=== PATIENT | male | born 1990 | race Caucasian/White ===

== ENCOUNTER 2019-05-22 22:05 | Emergency (ER) | payer BC ==
[2019-05-23 00:28] VITALS: BP 142/82
--- NOTE | 2019-05-23 00:36 | ER Document Report ---
ED Respiratory Problem - General Chief Complaint: Choked/Choking Stated Complaint: SHORTNESS OF BREATH Time Seen by Provider: 05/23/19 00:28 Mode of Arrival: Ambulatory Information source: Patient Notes: 28-year-old male presented to ED for complaint of choking on some food earlier today. He states he called his [facility] in the and they told him that he needed to come to the emergency room because he had some pain in the center of his chest when he coughs. He does not have any pain when he is not coughing. He is alert oriented respirations regular and unlabored speaking in full sentences walks with a even steady gait. His lungs are clear to auscultation at this time. - HPI Patient complains to provider of: Cough - He was seen after choking on some food earlier today Onset: This evening - About 7 PM Duration: Intermittent episodes Quality of pain: No pain Severity: None Pain Level: Denies Chest pain/discomfort: Intermittent - Only when he coughs Associated symptoms: Cough - Coughing intermittently tonight after he choked on some food. Has some chest pain when he coughs otherwise no pain Similar symptoms previously: No Recently seen / treated by doctor: No - Related Data Allergies/Adverse Reactions: No Known Allergies Allergy (Verified 05/23/19 00:41) Past Medical History - General Information source: Patient - Social History Smoking Status: Never Smoker Cigarette use (# per day): No Chew tobacco use (# tins/day): No Smoking Education Provided: No Frequency of alcohol use: None Drug Abuse: None Occupation: [employer] Lives with: Alone Family History: Reviewed & Not Pertinent Patient has suicidal ideation: No Patient has homicidal ideation: No - Past Medical History Cardiac Medical History: Reports: None Pulmonary Medical History: Reports: None EENT Medical History: Reports: None Neurological Medical History: Reports: None Endocrine Medical History: Reports: None Renal/ Medical History: Reports: None Malignancy Medical History: Reports None GI Medical History: Reports: None Musculoskeletal Medical History: Reports Hx Musculoskeletal Trauma Skin Medical History: Reports None Psychiatric Medical History: Reports: None Traumatic Medical History: Reports: None Infectious Medical History: Reports: None Surgical Hx: Negative Past Surgical History: Reports: None Review of Systems - Review of Systems Constitutional: No symptoms reported EENT: No symptoms reported Cardiovascular: Chest pain - When he coughs since he choked on some food earlier Respiratory: Cough - Pain when he coughs since he choked on some food earlier Gastrointestinal: No symptoms reported Genitourinary: No symptoms reported Male Genitourinary: No symptoms reported Musculoskeletal: No symptoms reported Skin: No symptoms reported Hematologic/Lymphatic: No symptoms reported Neurological/Psychological: No symptoms reported -: Yes All other systems reviewed and negative Physical Exam - Vital signs Vitals: Temp Pulse Resp BP Pulse Ox 97.5 F 82 18 157/109 H 94 05/22/19 22:09 05/22/19 22:09 05/22/19 22:09 05/22/19 22:09 05/22/19 22:09 Interpretation: Normal - General General appearance: Appears well, Alert - HEENT Head: Normocephalic, Atraumatic Eyes: Normal Pupils: PERRL Ears: Normal External canal: Normal Tympanic membrane: Normal Sinus: Normal Nasal: Normal Mouth/Lips: Normal Pharynx: Normal Neck: Normal - Respiratory Respiratory status: No respiratory distress Chest status: Nontender, Pain with cough. No: Tender Breath sounds: Normal Chest palpation: Normal - Cardiovascular Rhythm: Regular Heart sounds: Normal auscultation Murmur: No - Abdominal Inspection: Normal Distension: No distension Bowel sounds: Normal Tenderness: Nontender Organomegaly: No organomegaly - Back Back: Normal, Nontender - Extremities General upper extremity: Normal inspection, Nontender, Normal color, Normal ROM, Normal temperature General lower extremity: Normal inspection, Nontender, Normal color, Normal ROM, Normal temperature, Normal weight bearing. No: Yadi's sign - Neurological Neuro grossly intact: Yes Cognition: Normal Orientation: AAOx4 Vince Coma Scale Eye Opening: Spontaneous [place] Coma Scale Verbal: Oriented [place] Coma Scale Motor: Obeys Commands [place] Coma Scale Total: 15 Speech: Normal Motor strength normal: LUE, RUE, LLE, RLE Sensory: Normal - Psychological Associated symptoms: Normal affect, Normal mood - Skin Skin Temperature: Warm Skin Moisture: Dry Skin Color: Normal Course - Re-evaluation Re-evalutation: 05/23/19 00:41 Patient states he only has pain when he coughs. He was concerned because he called [facility] and they told him to come to the emergency room. His lungs are clear to auscultation. He does not have any tenderness to palpation he states it does hurt when he coughs real hard I explained to him that you can irritate your throat when you choke on a piece of food and then will make it hurt for a while. Encouraged Tylenol Motrin and ice water to reduce the pain at this time. He will need to follow-up with his primary doctor. I did tell him that his blood pressure was a little high and he needed to have that reevaluated to ensure he does not need medications. Patient verbalized understanding and agreement with treatment plan patient was discharged home. - Vital Signs Vital signs: Temp Pulse Resp BP Pulse Ox 98.0 F 79 18 142/82 H 100 05/23/19 00:27 05/23/19 00:27 05/23/19 00:27 05/23/19 00:27 05/23/19 00:27 Discharge - Discharge Clinical Impression: chest discomfort after choking on food Disposition: HOME, SELF-CARE Instructions: Family Physicians / Practices Additional Instructions: CHEST WALL PAIN: Your chest pain may be coming from the chest wall. This is often caused by straining the muscles or joints in the chest during physical activity, direct trauma, coughing, or vigorous vomiting. Persons with arthritis are especially prone to this type of pain, due to inflammation of the cartilage joints near the breast bone. Occasionally, no cause can be found. Rest from strenuous physical activity. This kind of chest pain is usually made worse by movement of the chest. Depending on the symptoms, we may prescribe medicine for pain, muscle relaxation, and antiinflammatory effects. If the pain is new, and seems to be due to muscle strain, cold packs can help. Otherwise, apply gentle warmth to the painful area for 15 minutes every hour or two. You should call contact the doctor immediately if things change. Further evaluation is needed if you develop a fever or cough, if the nature of the pain changes, or if you become short of breath. High Blood Pressure When your blood pressure was taken today it was elevated. Today's reading was 142/82 . Pre-hypertension/Hypertension: The patient has been informed that they may have pre-hypertension or Hypertension based on a blood pressure reading in the emergency department. I recommend that the patient call the primary care provider listed on their discharge instructions or a physician of their choice this wee to arrange follow up for further evaluation of possible pre- hypertension or Hypertension. Sometimes, stress or illness causes a temporary elevation of your blood pressure. We suggest that you get your blood pressure measured three more times during the next few days to see if this is more than a temporary abnormality. If your blood pressure is greater than 150/90 on each occasion, you must have treatment. Some simple things you can do to help are: If you have blood pressure medicine but aren't using it regularly, start taking it again. Get some aerobic exercise for at least 20 minutes on a daily basis. (See your doctor before begin regulo a new exercise program.) Eat a low-fat diet. Lose excess weight. Avoid salty foods and avoid adding salt to any of the foods you eat. Avoid diet pills, decongestants, "energizing" herbs, and other medicines that elevate blood pressure. If left untreated, hypertension greatly enhances your risk for developing heart disease and strokes. Please don't ignore this problem. FOLLOW-UP CARE: If you have been referred to a physician for follow-up care, call the physicians office for an appointment as you were instructed or within the next two days. If you experience worsening or a significant change in your symptoms, notify the physician immediately or return to the Emergency Department at any time for re-evaluation. Forms: Elevated Blood Pressure, Return to Work
== END 2019-05-23 00:43 | disposition home or self-care (01) ==
LOC: ER 22:05
DX: R07.9 Chest pain, unspecified (principal); R05 Cough; X58.XXXA Exposure to other specified factors, initial encounter
CPT/HCPCS: 99283

== ENCOUNTER 2019-08-23 12:16 | Emergency (ER) | payer BC ==
--- NOTE | 2019-08-23 12:47 | EKG REPORT ---
SEVERITY:- NORMAL ECG - SINUS RHYTHM : Confirmed by: Ortiz Loza 23-Aug-2019 12:45:49
--- NOTE | 2019-08-23 13:09 | RADIOLOGY REPORT (SQ) ---
EXAM DESCRIPTION: CHEST 2 VIEWS COMPLETED DATE/TIME: 08/23/2019 12:51 pm REASON FOR STUDY: chest pain COMPARISON: None. EXAM PARAMETERS: NUMBER OF VIEWS: two views TECHNIQUE: Digital Frontal and Lateral radiographic views of the chest acquired. RADIATION DOSE: NA LIMITATIONS: none FINDINGS: LUNGS AND PLEURA: No opacities, masses or pneumothorax. No pleural effusion. MEDIASTINUM AND HILAR STRUCTURES: No masses or contour abnormalities. HEART AND VASCULAR STRUCTURES: Heart normal size. No evidence for failure. BONES: No acute findings. HARDWARE: None in the chest. OTHER: No other significant finding. IMPRESSION: NO ACUTE RADIOGRAPHIC FINDING IN THE CHEST. TECHNICAL DOCUMENTATION: JOB ID: [id number] [employer]- All Rights Reserved Reading location - IP/workstation name: [email or web address]
[2019-08-23 13:32] LABS: ABSOLUTE BASOPHILS # (AUTO) 0.1 10^3/uL (0.0-0.2); ABSOLUTE EOSINOPHILS # (AUTO) 0.1 10^3/uL (0.0-0.6); ABSOLUTE LYMPHOCYTES (AUTO) 3.1 10^3/uL (0.5-4.7); ABSOLUTE MONOCYTES (AUTO) 0.7 10^3/uL (0.1-1.4); ABSOLUTE NEUT (AUTO) 7.5 10^3/uL (1.7-8.2); BASOPHILS % (AUTO) 0.6 % (0-2); HEMOGLOBIN 16.2 g/dL (13.5-17.0); LYMPHOCYTES % (AUTO) 26.8 % (13-45); MEAN CORPUSCULAR HEMOGLOBIN 29.3 pg (27.0-33.4); MEAN CORPUSCULAR HGB CONC 34.4 g/dL (32.0-36.0); MEAN CORPUSCULAR VOLUME 85 fl (80-97); MONOCYTES % (AUTO) 6.3 % (3-13); PLATELET COUNT 452 10^3/uL (150-450); RED BLOOD COUNT 5.52 10^6/uL (4.35-5.55); RED CELL DISTRIBUTION WIDTH 12.9 % (11.5-14.0); SEGMENTED NEUTROPHILS % (AUTO) 65.3 % (42-78); TOTAL CELLS COUNTED % (AUTO) 100 %; WHITE BLOOD COUNT 11.5 10^3/uL (4.0-10.5)
[2019-08-23 13:46] LABS: ALBUMIN 5.2 g/dL (3.5-5.0); ALKALINE PHOSPHATASE 55 U/L (38-126); ANION GAP 14 (5-19); ASPARTATE AMINO TRANSFERASE 26 U/L (17-59); BILIRUBIN,DIRECT 0.1 mg/dL (0.0-0.4); BILIRUBIN,TOTAL 0.6 mg/dL (0.2-1.3); BLOOD UREA NITROGEN 18 mg/dL (7-20); CALCIUM 10.6 mg/dL (8.4-10.2); CARBON DIOXIDE 25 mmol/L (22-30); CHLORIDE 103 mmol/L (98-107); GLUCOSE 97 mg/dL (75-110); POTASSIUM 4.7 mmol/L (3.6-5.0); TOTAL PROTEIN 8.6 g/dL (6.3-8.2)
--- NOTE | 2019-08-23 14:31 | ER Document Report ---
Entered by DEBRA ROCK SCRIBE 08/23/19 1002 Acting as scribe for:NORMA MALAVE MD ED General - General Chief Complaint: Chest Pain Stated Complaint: CHEST PRESSURE Time Seen by Provider: 08/23/19 12:28 Primary Care Provider: [facility] [Provider Group] - Follow up in 3-5 days (Call Sunday morning to schedule an appointment this week.) CEDRICK MCMULLEN PA [Primary Care Provider] - Follow up as needed Mode of Arrival: Ambulatory Information source: Patient Notes: This 29-year-old male patient presents to the emergency department today with complaints of intermittent chest pain which began this morning at 7 AM. Patient states the pain did not wake him up from sleep, stating that he was already awake when he first noticed the pain. Patient states he has had approximately x3-4 episodes of this pain since this morning. Patient states the pain lasts for "a couple of minutes", however the last episode lasted for about 30 minutes which caused concern. Patient states on arrival here when the EKG was performed the pain was still present but less severe than it was at its worst. 5 days ago the patient was put on albuterol inhalers and prednisone for a nonproductive cough and wheezing. Patient states the cough is no longer present. [facility] TRAVEL OUTSIDE OF THE [place] IN LAST 30 DAYS: No - Related Data Allergies/Adverse Reactions: No Known Allergies Allergy (Verified 08/23/19 12:27) Home Medications: valsartan Past Medical History - General Information source: Patient - Social History Smoking Status: Never Smoker Cigarette use (# per day): No Chew tobacco use (# tins/day): No Frequency of alcohol use: None Drug Abuse: None Occupation: [employer] Lives with: Family Family History: Reviewed & Not Pertinent Patient has suicidal ideation: No Patient has homicidal ideation: No - Past Medical History Cardiac Medical History: Reports: Hx Hypertension Renal/ Medical History: Denies: Hx Peritoneal Dialysis Musculoskeletal Medical History: Reports Hx Musculoskeletal Trauma Review of Systems - Review of Systems Constitutional: No symptoms reported EENT: No symptoms reported Cardiovascular: See HPI, Chest pain Respiratory: denies: Cough Gastrointestinal: No symptoms reported Genitourinary: No symptoms reported Male Genitourinary: No symptoms reported Musculoskeletal: No symptoms reported Skin: No symptoms reported Hematologic/Lymphatic: No symptoms reported Neurological/Psychological: No symptoms reported -: Yes All other systems reviewed and negative Physical Exam - Vital signs Vitals: Temp Pulse Resp BP Pulse Ox 97.7 F 86 28 H 151/107 H 100 08/23/19 12:25 08/23/19 12:25 08/23/19 12:25 08/23/19 12:25 08/23/19 12:25 - Notes Notes: Physical Exam: General: Alert, appears well. HEENT: Normocephalic. Atraumatic. PERRL. Extraocular movements intact. Oropharynx clear. Neck: Supple. Non-tender. Respiratory: No respiratory distress. Clear and equal breath sounds bilaterally. Cardiovascular: Regular rate and rhythm. Abdominal: Right upper quadrant tenderness with palpation. No distension. Normal Bowel Sounds. Back: No gross abnormalities. Extremities: Moves all four extremities. Upper extremities: Normal inspection. Normal ROM. Lower extremities: Normal inspection. No edema. Normal ROM. Neurological: Normal cognition. AAOx4. Normal speech. Psychological: Normal affect. Normal Mood. Skin: Warm. Dry. Normal color. Course - Re-evaluation Re-evalutation: 08/23/19 15:50 Patient does have large ketones in urine, however he is on a weight loss diet. - Vital Signs Vital signs: Temp Pulse Resp BP Pulse Ox 98.2 F 77 16 127/88 H 100 08/23/19 15:47 08/23/19 15:47 08/23/19 15:47 08/23/19 15:47 08/23/19 15:47 - Laboratory Result Diagrams: 08/23/19 13:22 08/23/19 13:22 Laboratory results interpreted by me: 08/23/19 08/23/19 08/23/19 13:22 13:22 14:53 WBC 11.5 H Plt Count 452 H Calcium 10.6 H Total Protein 8.6 H Albumin 5.2 H Urine Ketones 80 H Urine Ascorbic Acid 20 H - Diagnostic Test Radiology reviewed: Reports reviewed - Gallbladder ultrasound shows multiple small stones without gallbladder wall thickening or pericholecystic fluid. - EKG Interpretation by Me EKG shows normal: Sinus rhythm, [place], Intervals, QRS Complexes, ST-T Waves Rate: Normal - 79 Rhythm: NSR Discharge - Discharge Clinical Impression: Cholelithiasis Qualifiers: Cholelithiasis location: gallbladder Cholecystitis presence: without cholecystitis Biliary obstruction: without biliary obstruction Qualified Code(s): K80.20 - Calculus of gallbladder without cholecystitis without obstruction Condition: Stable Disposition: HOME, SELF-CARE Additional Instructions: Gallbladder Disease: Your evaluation shows evidence of gallbladder disease. The gallbladder is a pouch under the liver which stores bile. Stones, infection, or irritation of the gallbladder cause attacks of pain. Certain foods -- fats in particular -- may provoke attacks. The usual treatment for gallbladder disease is surgical removal of the gallbladder -- called a cholecystectomy. You will be referred to a physician qualified to advise you on the best treatment for your problem. Hospitalization is not necessary. Take clear liquids only until you are painfree. After that, you should stay on a low-fat diet, with frequent SMALL meals. Call the doctor or return at once if you develop severe pain, repeated vomiting, fever, or jaundice (a yellow color in the skin and whites of the eyes). Low-Fat Diet: The physician has recommended a low-fat diet. This diet is often used for gallbladder or pancreas problems. Your meals should be high-carbohydrate (potato, apples, noodles, breads, vegetables). Eat fish or skinless chicken (boiled or baked rather than fried) for protein. Beans and peas are good sources of fat-free protein. Soups are usually very low-fat. Don't eat anything fried. Avoid red meats. Avoid most dairy products. Skim milk and non-fat yogurt are OK. Most popular cheeses are very high-fat. Don't add butter or sauces -- use lemon or pepper instead. If you like salads, use one of the new "non-fat" dressings. "Fast Food" is "fat food." There is virtually nothing from a typical fast- food restaurant that you can eat. Fish patties and chicken nuggets are almost always deep-fat fried. "Special Sauces" are mostly fat. Eat a low-fat nongreasy, non-fried food type diet. Take your diclofenac for pain as needed. Take the [place] as prescribed if the diclofenac does not control his symptoms. Call [facility] Sunday to schedule an appointment this week. RETURN TO THE EMERGENCY ROOM IF ANY NEW OR WORSENING SYMPTOMS. Prescriptions: Hydrocodone/Acetaminophen [[place] 5-325 mg Tablet] 1 tab PO Q4 PRN #12 tablet PRN Reason: Referrals: CEDRICK MCMULLEN PA [Primary Care Provider] - Follow up as needed [facility] [Provider Group] - Follow up in 3-5 days (Call Sunday to schedule an appointment this week.) Scribe Attestation: 08/23/19 13:54 I personally performed the services described in the documentation, reviewed and edited the documentation which was dictated to the scribe in my presence, and it accurately records my words and actions. I personally performed the services described in the documentation, reviewed and edited the documentation which was dictated to the scribe in my presence, and it accurately records my words and actions.
[2019-08-23] MEDS ORDERED: NORMAL SALINE 1000 ML 1,000 ML IV ONE (14:32)
--- NOTE | 2019-08-23 14:40 | RADIOLOGY REPORT (SQ) ---
EXAM DESCRIPTION: U/S ABDOMEN LIMITED W/O DOP COMPLETED DATE/TIME: 08/23/2019 2:22 pm REASON FOR STUDY: RUQ abd pain COMPARISON: None. TECHNIQUE: Dynamic and static grayscale images acquired of the abdomen and recorded on PACS. Additio nal selected color Doppler and spectral images recorded. LIMITATIONS: Midline bowel gas, body habitus FINDINGS: PANCREAS: Limited view of the midline pancreas unremarkable LIVER: Enlarged fatty liver, difficult to penetrate with the ultrasound energy. Focal sparing at the gallbladder fossa. No intrahepatic biliary ductal dilatation LIVER VASCULATURE: Normal directional flow of the main portal vein and hepatic veins. GALLBLADDER: Multiple stones in the gallbladder. No gross gallbladder wall thickening or pericholecy stic fluid ULTRASOUND-DETECTED HOUGH'S SIGN: Negative. INTRAHEPATIC DUCTS AND COMMON DUCT: CBD and intrahepatic ducts normal caliber. No filling defects. INFERIOR VENA CAVA: Not well seen AORTA: No aneurysm. RIGHT KIDNEY: Normal size. Normal echogenicity. No solid or suspicious masses. No hydronephrosis. No calcifications. PERITONEAL AND RIGHT PLEURAL SPACE: No ascites or effusions. OTHER: No other significant findings. IMPRESSION: Fatty liver Multiple small stones in the gallbladder. No gallbladder wall thickening or pericholecystic fluid TECHNICAL DOCUMENTATION: JOB ID: [id number] [employer]- All Rights Reserved Reading location - IP/workstation name: [id number]
[2019-08-23 15:26] LABS: APPEARANCE,URINE CLEAR; BILIRUBIN,URINE NEGATIVE (NEGATIVE); COLOR,URINE STRAW; GLUCOSE, URINE NEGATIVE (NEGATIVE); KETONES,URINE 80 mg/dL (NEGATIVE); LEUKOCYTE ESTERASE,URINE NEGATIVE (NEGATIVE); NITRITE,URINE NEGATIVE (NEGATIVE); PROTEIN,URINE NEGATIVE (NEGATIVE); URINE SPECIFIC GRAVITY 1.012; UROBILINOGEN,URINE NEGATIVE mg/dL (<2.0)
[2019-08-23 15:47] VITALS: BP 127/88
== END 2019-08-23 16:10 | disposition home or self-care (01) ==
LOC: ER 12:16
DX: K80.20 Calculus of gallbladder without cholecystitis without obstruction (principal); R07.9 Chest pain, unspecified; I10 Essential (primary) hypertension
CPT/HCPCS: 99284; 93005; 96360; 36415; 85025; 80053; 81001; 84484; 71046; 76705; 93010; J7030

== ENCOUNTER 2019-08-26 16:15 | Emergency (ER) | payer BC ==
[2019-08-26 18:04] LABS: APPEARANCE,URINE CLEAR; BILIRUBIN,URINE NEGATIVE (NEGATIVE); COLOR,URINE STRAW; GLUCOSE, URINE NEGATIVE (NEGATIVE); KETONES,URINE TRACE mg/dL (NEGATIVE); LEUKOCYTE ESTERASE,URINE NEGATIVE (NEGATIVE); NITRITE,URINE NEGATIVE (NEGATIVE); PROTEIN,URINE NEGATIVE (NEGATIVE); URINE SPECIFIC GRAVITY 1.003; UROBILINOGEN,URINE NEGATIVE mg/dL (<2.0)
[2019-08-26 18:12] LABS: ABSOLUTE BASOPHILS # (AUTO) 0.1 10^3/uL (0.0-0.2); ABSOLUTE EOSINOPHILS # (AUTO) 0.1 10^3/uL (0.0-0.6); ABSOLUTE LYMPHOCYTES (AUTO) 3.3 10^3/uL (0.5-4.7); ABSOLUTE MONOCYTES (AUTO) 0.8 10^3/uL (0.1-1.4); BASOPHILS % (AUTO) 0.6 % (0-2); EOSINOPHILS % (AUTO) 0.8 % (0-6); HEMATOCRIT 46.4 % (37.9-51.0); HEMOGLOBIN 15.8 g/dL (13.5-17.0); LYMPHOCYTES % (AUTO) 29.4 % (13-45); MEAN CORPUSCULAR HEMOGLOBIN 29.1 pg (27.0-33.4); MEAN CORPUSCULAR VOLUME 86 fl (80-97); MONOCYTES % (AUTO) 7.2 % (3-13); PLATELET COUNT 443 10^3/uL (150-450); RED BLOOD COUNT 5.43 10^6/uL (4.35-5.55); RED CELL DISTRIBUTION WIDTH 13.1 % (11.5-14.0); TOTAL CELLS COUNTED % (AUTO) 100 %; WHITE BLOOD COUNT 11.3 10^3/uL (4.0-10.5)
--- NOTE | 2019-08-26 18:17 | ER Document Report ---
ED General - General Chief Complaint: Abdominal Pain Stated Complaint: ABDOMINAL PAIN, PAINFUL URINATION Time Seen by Provider: 08/26/19 17:45 Primary Care Provider: CEDRICK MCMULLEN PA [Primary Care Provider] - Follow up as needed TRAVEL OUTSIDE OF THE [place] IN LAST 30 DAYS: No - HPI Notes: Patient is a 29-year-old male who presents emergency department for evaluation of lower abdominal pain. He was seen here on Sunday for right upper quadrant and left chest pain. He was diagnosed with gallstones at that time. He states that pain remains, but is improved somewhat. He states that about 3 PM today he developed a sharp and stabbing pain from his belt line down into the pelvic region. He states is worse by sitting up, improved by laying down. He states the pain comes in waves, lasts about 30 seconds. He denies any fevers or chills. No nausea or vomiting. He is eating and drinking normally. He denies any dysuria, hematuria, urinary frequency. He did have a bowel movement this morning that was normal. He is awaiting a colonoscopy in September as he has had some blood with his stool. - Related Data Allergies/Adverse Reactions: No Known Allergies Allergy (Verified 08/23/19 12:27) Home Medications: valsartan Past Medical History - General Information source: Patient - Social History Smoking Status: Never Smoker Family History: Reviewed & Not Pertinent Patient has suicidal ideation: No Patient has homicidal ideation: No - Past Medical History Cardiac Medical History: Reports: Hx Hypertension Renal/ Medical History: Denies: Hx Peritoneal Dialysis GI Medical History: Reports: Other - Cholelithiasis Musculoskeletal Medical History: Reports Hx Musculoskeletal Trauma Review of Systems - Review of Systems Constitutional: No symptoms reported EENT: No symptoms reported Cardiovascular: No symptoms reported Respiratory: No symptoms reported Gastrointestinal: See HPI Genitourinary: No symptoms reported Male Genitourinary: No symptoms reported Musculoskeletal: No symptoms reported Skin: No symptoms reported Neurological/Psychological: No symptoms reported Physical Exam - Vital signs Vitals: Temp Pulse Resp BP Pulse Ox 98.1 F 85 16 142/90 H 98 08/26/19 16:28 08/26/19 16:28 08/26/19 16:28 08/26/19 16:28 08/26/19 16:28 - Notes Notes: Vital signs reviewed, please refer to chart. Head is normocephalic, atraumatic. Pupils equal round, reactive to light. Neck is supple without meningismus. Heart is regular rate and rhythm. Lungs are clear to auscultation bilaterally. Abdomen is soft, mildly tender in the suprapubic region without rebound or guarding, normoactive bowel sounds throughout. No CVA tenderness. Extremities without cyanosis, clubbing. Posterior calves are nontender. Peripheral pulses are equal. Skin is warm and dry. Patient is awake, alert, neurological exam is nonfocal. Course - Re-evaluation Re-evalutation: 08/26/19 19:31 Patient presents emerged department for evaluation. He has positional lower abdominal pain. Is actually improved. It was worsened a little bit by my palpation. Again give the patient Toradol. His laboratory investigations, including urinalysis, are unremarkable. On further questioning, the patient admitted that his grandmother 18 months ago from some sort of colon cancer. He was concerned that that might be an issue. He Jay Jay has a colonoscopy scheduled for September. I told him that that would be the most appropriate follow-up for him in regards to ruling out a condition like that. He voiced understanding and was discharged. - Vital Signs Vital signs: Temp Pulse Resp BP Pulse Ox 98.1 F 85 16 142/90 H 98 08/26/19 17:10 08/26/19 17:10 08/26/19 17:10 08/26/19 17:10 08/26/19 17:10 - Laboratory Result Diagrams: 08/26/19 17:12 08/26/19 17:12 Laboratory results interpreted by me: 08/26/19 08/26/19 17:12 17:12 WBC 11.3 H Urine Ketones TRACE H Discharge - Discharge Clinical Impression: Lower abdominal pain Condition: Stable Disposition: HOME, SELF-CARE Instructions: Abdominal Pain ([facility]) Additional Instructions: No clear cause was found for your abdominal pain here today. Please follow-up with primary care in the next week, and gastroenterology as scheduled in September. He develop increased pain, vomiting, fevers, or any other new or concerning symptoms, please return immediately to the emergency department for reevaluation. Referrals: CEDRICK MCMULLEN PA [Primary Care Provider] - Follow up as needed
[2019-08-26 18:23] LABS: ALKALINE PHOSPHATASE 47 U/L (38-126); ANION GAP 13 (5-19); ASPARTATE AMINO TRANSFERASE 22 U/L (17-59); BILIRUBIN,DIRECT 0.1 mg/dL (0.0-0.4); BILIRUBIN,TOTAL 0.6 mg/dL (0.2-1.3); BLOOD UREA NITROGEN 13 mg/dL (7-20); CALCIUM 9.8 mg/dL (8.4-10.2); CARBON DIOXIDE 26 mmol/L (22-30); CHLORIDE 102 mmol/L (98-107); GLUCOSE 88 mg/dL (75-110); POTASSIUM 4.6 mmol/L (3.6-5.0); TOTAL PROTEIN 8.2 g/dL (6.3-8.2)
[2019-08-26] MEDS ORDERED: KETOROLAC TROMETHAMINE INJ/PF 30 MG/1 ML SDV IV ONE (19:29)
[2019-08-26] MEDS ORDERED: KETOROLAC TROMETHAMINE INJ/PF 30 MG/1 ML SDV ONE (20:09)
[2019-08-26 20:20] VITALS: BP 129/85
== END 2019-08-26 20:21 | disposition home or self-care (01) ==
LOC: ER 16:15
DX: R10.30 Lower abdominal pain, unspecified (principal); R10.11 Right upper quadrant pain; R07.9 Chest pain, unspecified; R30.0 Dysuria; I10 Essential (primary) hypertension
CPT/HCPCS: 99284; 36415; 83690; 85025; 80053; 81001; J1885

== ENCOUNTER 2019-09-02 14:40 | Emergency (ER) | payer BC ==
[2019-09-02] MEDS ORDERED: NORMAL SALINE 1000 ML 1,000 ML IV ONE (15:09)
--- NOTE | 2019-09-02 15:09 | ER Document Report ---
ED Medical Screen (RME) - General Chief Complaint: Dizziness Stated Complaint: LIGHTHEADED/POST ENDOSCOPY Time Seen by Provider: 09/02/19 15:05 Primary Care Provider: CEDRICK MCMULLEN PA [Primary Care Provider] - Follow up as needed Mode of Arrival: Wheelchair Information source: Patient Notes: 29-year-old male presented to ED for complaint of dizziness lightheaded nests about an hour. He states he went to the [facility] urgent [facility] and had a endoscopy with Dr. Miles at about 830 this morning. He states he ate lunch about noon and then developed dizziness and lightheadedness. He states he called Dr. Miles they said that the soreness in his throat was normal but the dizziness and lightheaded was not normal and that he needed to come to the emergency room to be evaluated he denies any nausea or vomiting. He states he does have some mild pain to the left side of his. She is alert oriented respirations regular nonlabored speaking in full sentences. He states he still feels lightheaded dizzy and out of it. The endoscopy they found a polyp on his stomach which they removed states he has not spit up any blood. He does have the results of his endoscopy with him. I have greeted and performed a rapid initial assessment of this patient. A comprehensive ED assessment and evaluation of the patient, analysis of test results and completion of medical decision making process will be conducted by an additional ED providers. TRAVEL OUTSIDE OF THE [place] IN LAST 30 DAYS: No - Related Data Allergies/Adverse Reactions: No Known Allergies Allergy (Verified 08/23/19 12:27) Past Medical History - Past Medical History Cardiac Medical History: Reports: Hx Hypertension Renal/ Medical History: Denies: Hx Peritoneal Dialysis Musculoskeltal Medical History: Reports Hx Musculoskeletal Trauma Physical Exam - Vital signs Vitals: Temp Pulse Resp BP Pulse Ox 98.0 F 85 22 H 118/88 H 98 09/02/19 15:00 09/02/19 15:00 09/02/19 15:00 09/02/19 15:00 09/02/19 15:00 Course - Vital Signs Vital signs: Temp Pulse Resp BP Pulse Ox 98.0 F 85 22 H 118/88 H 98 09/02/19 15:00 09/02/19 15:00 09/02/19 15:00 09/02/19 15:00 12/10/19 15:00 Doctor's Discharge - Discharge Referrals: CEDRICK MCMULLEN PA [Primary Care Provider] - Follow up as needed
[2019-09-02 15:54] LABS: ABSOLUTE BASOPHILS # (AUTO) 0.1 10^3/uL (0.0-0.2); ABSOLUTE LYMPHOCYTES (AUTO) 2.9 10^3/uL (0.5-4.7); ABSOLUTE MONOCYTES (AUTO) 0.7 10^3/uL (0.1-1.4); ABSOLUTE NEUT (AUTO) 5.5 10^3/uL (1.7-8.2); BASOPHILS % (AUTO) 0.8 % (0-2); EOSINOPHILS % (AUTO) 0.4 % (0-6); HEMATOCRIT 44.6 % (37.9-51.0); HEMOGLOBIN 15.3 g/dL (13.5-17.0); LYMPHOCYTES % (AUTO) 31.3 % (13-45); MEAN CORPUSCULAR HEMOGLOBIN 29.3 pg (27.0-33.4); MEAN CORPUSCULAR HGB CONC 34.4 g/dL (32.0-36.0); MEAN CORPUSCULAR VOLUME 85 fl (80-97); MONOCYTES % (AUTO) 7.6 % (3-13); PLATELET COUNT 447 10^3/uL (150-450); RED BLOOD COUNT 5.24 10^6/uL (4.35-5.55); RED CELL DISTRIBUTION WIDTH 12.6 % (11.5-14.0); SEGMENTED NEUTROPHILS % (AUTO) 59.9 % (42-78); TOTAL CELLS COUNTED % (AUTO) 100 %; WHITE BLOOD COUNT 9.2 10^3/uL (4.0-10.5)
[2019-09-02 16:01] LABS: APPEARANCE,URINE CLEAR; BILIRUBIN,URINE NEGATIVE (NEGATIVE); COLOR,URINE YELLOW; GLUCOSE, URINE NEGATIVE (NEGATIVE); KETONES,URINE 20 mg/dL (NEGATIVE); PROTEIN,URINE NEGATIVE (NEGATIVE); URINE SPECIFIC GRAVITY 1.015; UROBILINOGEN,URINE NEGATIVE mg/dL (<2.0)
[2019-09-02 16:15] LABS: ALBUMIN 4.6 g/dL (3.5-5.0); ALKALINE PHOSPHATASE 51 U/L (38-126); ANION GAP 12 (5-19); ASPARTATE AMINO TRANSFERASE 20 U/L (17-59); BILIRUBIN,TOTAL 0.6 mg/dL (0.2-1.3); BLOOD UREA NITROGEN 11 mg/dL (7-20); CALCIUM 9.7 mg/dL (8.4-10.2); CARBON DIOXIDE 25 mmol/L (22-30); CHLORIDE 104 mmol/L (98-107); GLUCOSE 89 mg/dL (75-110); POTASSIUM 4.5 mmol/L (3.6-5.0); TOTAL PROTEIN 7.5 g/dL (6.3-8.2)
--- NOTE | 2019-09-02 16:59 | ER Document Report ---
ED General - General Chief Complaint: Dizziness Stated Complaint: LIGHTHEADED/POST ENDOSCOPY Time Seen by Provider: 09/02/19 15:05 Primary Care Provider: CEDRICK MCMULLEN PA [Primary Care Provider] - Follow up in 3-5 days Mode of Arrival: Wheelchair Information source: Patient Notes: This 29-year-old male presents emergency department with complaints of feeling dizzy lightheaded. Reports he had a EGD done by Dr. Miles at [facility] at 830 this morning. Patient reports he had the EGD done because he was having trouble swallowing and felt like he had some stuck in the middle of his esophagus after eating. He reports he would have chest pain whenever he ate. He reports he was at home looking at his computer when he started feeling dizzy and lightheaded. He denies fever nausea vomiting diarrhea. He reports he feels better now. Reports he did eat some soup earlier today. Patient reports he has to be careful with what he eats because he has gallstones and is scheduled for surgery next week. TRAVEL OUTSIDE OF THE [place] IN LAST 30 DAYS: No - HPI Onset: Just prior to arrival Onset/Duration: Sudden Quality of pain: No pain Associated symptoms: None Exacerbated by: Denies Relieved by: Denies Similar symptoms previously: No Recently seen / treated by doctor: Yes - Related Data Allergies/Adverse Reactions: No Known Allergies Allergy (Verified 08/23/19 12:27) Past Medical History - General Information source: Patient - Social History Smoking Status: Unknown if Ever Smoked Cigarette use (# per day): No Frequency of alcohol use: None Drug Abuse: None Occupation: [employer] Lives with: Alone Family History: Reviewed & Not Pertinent Patient has suicidal ideation: No Patient has homicidal ideation: No - Past Medical History Cardiac Medical History: Reports: Hx Hypertension Renal/ Medical History: Denies: Hx Peritoneal Dialysis GI Medical History: Reports: Hx Gastroesophageal Reflux Disease Musculoskeletal Medical History: Reports Hx Musculoskeletal Trauma Surgical Hx: Negative Review of Systems - Review of Systems Notes: Review HPI for review of systems., All other systems negative Physical Exam - Vital signs Vitals: Temp Pulse Resp BP Pulse Ox 98.0 F 85 22 H 118/88 H 98 09/02/19 15:00 09/02/19 15:00 09/02/19 15:00 09/02/19 15:00 09/02/19 15:00 - Notes Notes: PHYSICAL EXAMINATION: GENERAL: Well-appearing and in no acute distress nontoxic looking HEAD: Atraumatic, normocephalic. EYES: Pupils equal round and reactive to light, extraocular movements intact, sclera anicteric, conjunctiva are normal. ENT: nares patent, oropharynx clear without exudates. Moist mucous membranes. NECK: Normal range of motion, supple without lymphadenopathy LUNGS: CTAB and equal. No wheezes rales or rhonchi. HEART: Regular rate and rhythm without murmurs ABDOMEN: Soft, no tenderness. No guarding, no rebound EXTREMITIES: Normal range of motion NEUROLOGICAL: Cranial nerves grossly intact. Normal sensory/motor exams. PSYCH: Normal mood, normal affect. SKIN: Warm, Dry, normal turgor, no rashes or lesions noted Course - Re-evaluation Re-evalutation: 09/02/19 17:03 29-year-old male presents emergency department feeling dizzy after he had a EGD done this morning. Patient reports he is feeling much better. All labs are unremarkable. Patient reports he feels much better. Labs unremarkable some ketones noted. Patient did receive a liter of IV fluids. Patient was instructed on rest soft diet advance as tolerated and follow-up with his primary care provider for recheck. He was also instructed to keep his appointment with his GI scheduled Sunday. Patient was also instructed to return for the emergency department for worsening symptoms concerns he verbalized understanding to all instructions. 09/02/19 15:33 09/02/19 15:33 MCV 85 fl (80-97) 09/02/19 15:33 MCH 29.3 pg (27.0-33.4) 09/02/19 15:33 MCHC 34.4 g/dL (32.0-36.0) 09/02/19 15:33 RDW 12.6 % (11.5-14.0) 09/02/19 15:33 Seg Neutrophils % 59.9 % (42-78) 09/02/19 15:33 Chloride 104 mmol/L (98-107) 09/02/19 15:33 Carbon Dioxide 25 mmol/L (22-30) 09/02/19 15:33 Anion Gap 12 (5-19) 09/02/19 15:33 Est GFR ( Amer) > 60 (>60) 09/02/19 15:33 Glucose 89 mg/dL (75-110) 09/02/19 15:33 Calcium 9.7 mg/dL (8.4-10.2) 09/02/19 15:33 Total Bilirubin 0.6 mg/dL (0.2-1.3) 09/02/19 15:33 AST 20 U/L (17-59) 09/02/19 15:33 Alkaline Phosphatase 51 U/L (38-126) 09/02/19 15:33 Total Protein 7.5 g/dL (6.3-8.2) 09/02/19 15:33 Albumin 4.6 g/dL (3.5-5.0) 09/02/19 15:33 Urine Color YELLOW 09/02/19 15:33 Urine Appearance CLEAR 09/02/19 15:33 Urine pH 9.0 (5.0-9.0) 09/02/19 15:33 Ur Specific [place] 1.015 09/02/19 15:33 Urine Protein NEGATIVE mg/dL (NEGATIVE) 09/02/19 15:33 Urine Glucose (UA) NEGATIVE mg/dL (NEGATIVE) 09/02/19 15:33 Urine Ketones 20 mg/dL (NEGATIVE) H 09/02/19 15:33 Urine Blood NEGATIVE (NEGATIVE) 09/02/19 15:33 Urine RBC (Auto) 0 /HPF 09/02/19 15:33 09/02/19 17:05 Dictation of this chart was performed using voice recognition software; therefore, there may be some unintended grammatical errors. - Vital Signs Vital signs: Temp Pulse Resp BP Pulse Ox 98.1 F 80 18 122/76 99 09/02/19 17:20 09/02/19 17:20 09/02/19 17:20 09/02/19 17:20 09/02/19 17:20 - Laboratory Result Diagrams: 09/02/19 15:33 09/02/19 15:33 Laboratory results interpreted by me: 09/02/19 15:33 Urine Ketones 20 H Discharge - Discharge Clinical Impression: Dizziness Condition: Stable Disposition: HOME, SELF-CARE Instructions: Dizziness ([facility]) Additional Instructions: *You have been evaluated for dizziness *Soft foods advance as tolerated *Follow up with your primary care provider within 1 week for recheck *Follow-up with your graphic illustrator as scheduled Sunday *Return to ED for worsening condition, changes, needs, concerns needs Referrals: CEDRICK MCMULLEN PA [Primary Care Provider] - Follow up in 3-5 days
[2019-09-02 17:21] VITALS: BP 122/76
== END 2019-09-02 17:20 | disposition home or self-care (01) ==
LOC: ER 14:40
DX: R42 Dizziness and giddiness (principal); Z98.890 Other specified postprocedural states; I10 Essential (primary) hypertension
CPT/HCPCS: 99284; 96360; 36415; 85025; 80053; 81001; J7030

== ENCOUNTER 2019-09-10 10:11 | Day surgery (SDC) | payer BC ==
[2019-09-08 10:51] LABS: HEMATOCRIT 44.4 % (37.9-51.0); HEMOGLOBIN 15.3 g/dL (13.5-17.0); MEAN CORPUSCULAR HEMOGLOBIN 29.7 pg (27.0-33.4); MEAN CORPUSCULAR HGB CONC 34.6 g/dL (32.0-36.0); MEAN CORPUSCULAR VOLUME 86 fl (80-97); PLATELET COUNT 367 10^3/uL (150-450); RED BLOOD COUNT 5.17 10^6/uL (4.35-5.55); WHITE BLOOD COUNT 6.2 10^3/uL (4.0-10.5)
[2019-09-08 11:21] LABS: ALBUMIN 4.7 g/dL (3.5-5.0); ALKALINE PHOSPHATASE 50 U/L (38-126); AMYLASE 49 U/L (30-110); ANION GAP 14 (5-19); ASPARTATE AMINO TRANSFERASE 20 U/L (17-59); BILIRUBIN,DIRECT 0.1 mg/dL (0.0-0.4); BILIRUBIN,TOTAL 0.7 mg/dL (0.2-1.3); BLOOD UREA NITROGEN 11 mg/dL (7-20); CALCIUM 10.1 mg/dL (8.4-10.2); CARBON DIOXIDE 26 mmol/L (22-30); CHLORIDE 101 mmol/L (98-107); GLUCOSE 88 mg/dL (75-110); POTASSIUM 4.6 mmol/L (3.6-5.0); TOTAL PROTEIN 7.7 g/dL (6.3-8.2)
[~2019-09-10 10:11] MED LIST: ACETAMINOPHEN 325 MG TABLET PO PRN; CEFAZOLIN SODIUM 1 GM in DEXTROSE 5%-WATER 50 ML IV PRN; DEXAMETHASONE SOD PHOSPHATE INJ 4 MG/1 ML VIAL ONE; GLYCOPYRROLATE 1 MG/5 ML VIAL ONE; LACTATED RINGERS 1000 ML IV PRN; LIDOCAINE 0.5% INJ-PF (5 MG/ML) 50 ML SDV SUBCUT PRN; METRONIDAZOLE 500 MG/NS RTU 500 MG/100 ML RTUPB IV PRN; NEOSTIGMINE METHYLSULFATE 10 MG/10 ML VIAL ONE; ONDANSETRON HCL INJ/PF 4 MG/2 ML SDV ONE; RINGERS SOLUTION,LACTATED 1,000 ML IV PRN
[2019-09-10] MEDS ORDERED: METRONIDAZOLE 500 MG/NS RTU 500 MG/100 ML RTUPB IV ONE (12:51)
[2019-09-10] MEDS ORDERED: BUPIVACAINE INJ/PF LIPOSOME/PF 266 MG/20 ML SDV ONE (13:45)
[2019-09-10] MEDS ORDERED: FENTANYL CITRATE INJ/PF 250 MCG/5 ML AMPULE ONE (13:57)
[2019-09-10] MEDS ORDERED: HYDROMORPHONE HCL INJ/PF 2 MG/ML AMPULE ONE (13:57)
[2019-09-10] MEDS ORDERED: MIDAZOLAM 2 MG/2 ML INJ ONE (13:57)
[2019-09-10] MEDS ORDERED: PROPOFOL INJ 200 MG/20 ML VIAL IV ONE (13:57)
[2019-09-10] MEDS ORDERED: MEPERIDINE HCL/PF INJ 25 MG/1 ML DISP.SYRIN IV PRN (14:41)
[2019-09-10] MEDS ORDERED: PROMETHAZINE HCL INJ 25 MG/1 ML VIAL IV PRN (14:41)
[2019-09-10] MEDS ORDERED: FENTANYL CITRATE INJ/PF 100 MCG/2 ML AMPUL IV PRN ×3 (14:41)
[2019-09-10] MEDS ORDERED: MORPHINE SULFATE 10 MG/ML INJ IV PRN (14:41)
[2019-09-10] MEDS ORDERED: DIPHENHYDRAMINE HCL 50 MG/ML VIAL IV PRN (14:41)
--- NOTE | 2019-09-10 15:04 | Operative Report ---
Nonrecallable Operative Report DATE OF SURGERY: 09/10/19 PREOPERATIVE DIAGNOSIS: symptomatic cholelithiasis POSTOPERATIVE DIAGNOSIS: symptomatic cholelithiasis OPERATION: laparoscopic cholecystectomy SURGEON: DES GOLDSMITH ANESTHESIA: GA TISSUE REMOVED OR ALTERED: gallbladder COMPLICATIONS: none ESTIMATED BLOOD LOSS: 25cc INTRAOPERATIVE FINDINGS: see dictation PROCEDURE: After obtaining informed consent, the patient was taken to the operating room. General Anesthesia was induced; the arms were extended, and the abdomen was exposed, and prepped and draped in a sterile fashion. Instrumentation was set up for laparoscopic cholecystectomy. Surgical plan and surgical timeout were conducted. A vertical incision was made above the umbilicus, and a verres needle was inserted uneventfully into the peritoneal cavity. Pneumoperitoneum was established. The verres needle was removed and a 10 mm trocar was inserted and a 10mm laparoscope was inserted. Visualization of the peritoneal cavity confirmed safe uneventful entry. Under direct visualization 3 additional 5 mm ports were e stablished, one in the subxiphoid position and second in the subcostal position. Visualization of the hepatobiliary anatomy revealed no anatomic variations. A grasper was placed on the fundus of the gallbladder and the gallbladder is elevated over the right surface of the liver; a second grasper was used to grasp the infundibulum of the gallbladder. The neck of the gallbladder and junction with the cystic duct was dissected out. The Cystic artery was in its usual location medial and cephalad to the cystic duct. The cystic artery was surrounded with a right angle clamp, clipped twice proximally and divided with laparoscopic scissors. We now opened the triangle of Calot by dividing the peritoneal reflection on both the medial and lateral sides of the cystic duct infundibular junction. The critical view was obtained. We now milked the cystic duct of any possible stones, clipped the cystic duct approximately 2 times once distally and divided with scissors. The gallbladder was now removed from the undersurface of the liver using hook cautery dissection. Graspers were repositioned and the gallbladder was removed uneventfully from the abdominal cavity through the super umbilical port site incision. The specimen was examined, then passed off to pathology for permanent analysis. We returned to the peritoneal cavity check for bleeding, and evidence of bile leak, and there was none. We Confirmed satisfactory placement of clips on cystic duct and cystic artery were secured . At this point we felt the operation was complete. The subcutaneous tissue was then anesthetized with quarter percent Marcaine Sponge and needle counts are correct. All ports removed under direct visualization pneumoperitoneum evacuated, and 5 mm port wounds closed with 3-0 Vicryl suture, benzoin and Steri-Strips. The patient was extubated, and taken to the recovery room in stable condition.
[2019-09-10] MEDS ORDERED: OXYCODONE-ACETAMINOPHEN 5-325 MG TABLET PO PRN (15:06)
--- NOTE | 2019-09-10 15:06 | Discharge Summary ---
Discharge Summary (SDC) - Discharge Final Diagnosis: symptomatic cholelithasis Date of Surgery: 09/10/19 Discharge Date: 09/10/19 Condition: Good Referrals: CEDRICK MCMULLEN PA [Primary Care Provider] - Discharge Diet: As Tolerated Discharge Activity: Activity As Tolerated, No Lifting Over 10 Pounds Report the Following to Your Physician Immediately: Nausea, Vomiting, Increase in Pain, Fever over 101 Degrees - needs a f/u appoint in 7-10 days with me.
[2019-09-10] MEDS ORDERED: MORPHINE SULFATE 10 MG/ML INJ ONE (15:20)
[2019-09-10] MEDS ORDERED: ONDANSETRON HCL INJ/PF 4 MG/2 ML SDV ONE (15:40)
[2019-09-10 20:00] VITALS: BP 134/80
== END 2019-09-10 17:00 | disposition home or self-care (01) ==
LOC: OROUT 10:11
PROVIDERS: ATTEND Surgery
DX: K81.1 Chronic cholecystitis (principal); I10 Essential (primary) hypertension; R00.2 Palpitations; Z79.899 Other long term (current) drug therapy
CPT/HCPCS: 86900; 86901; 36415; 86850; 82150; 85027; 80076; 80048; 88304 ×2; 47562; J2250; J0690; J1100; J3010; J3490 ×2; J2270; J2710; J1170; J2405; J7060; J2704; C9290